=== PATIENT | female | born 1975 | race Two or more races ===

== ENCOUNTER 2017-06-23 05:35 | Day surgery (SDC) | payer OTHER ==
[~2017-06-23 05:35] MED LIST: OGESTREL TABLE1 EACH PO
== END 2017-06-23 15:45 | disposition home or self-care (01) ==
LOC: CIR.AMB 05:35
DX: N84.0 Polyp of corpus uteri (principal); D26.7 Other benign neoplasm of other parts of uterus

== ENCOUNTER 2021-08-06 05:33 | Day surgery (SDC) | payer OTHER | END 2021-08-06 14:15 | disposition home or self-care (01) | LOC: CIR.AMB 05:33 → EDBD 10:15 → CIR.AMB 10:15 | PROVIDERS: ATTEND Obstetrics & Gynecology | DX: N93.8 Other specified abnormal uterine and vaginal bleeding (principal); Z87.891 Personal history of nicotine dependence; Z20.822 Contact with and (suspected) exposure to COVID-19 ==

== ENCOUNTER 2024-03-19 14:18 | Emergency (ER) | payer OTHER ==
[~2024-03-19] VITALS: Ht 165.1 cm; Wt 59.0 kg
[2024-03-19 16:06] LABS: HEMATOCRIT 40.6 % (36.0-45.00); HEMOGLOBIN 13.9 g/dL (12.0-15.00); MEAN CELL VOLUME 91.5 fL (80.00-100.00); MEAN CORPUSCULAR HEMOGLOBIN 31.2 pg (27.00-32.0); MEAN CORPUSCULAR HGB CONC 34.1 g/dl (32.0-36.0); PLATELET COUNT 269 K/uL (150-450); RED BLOOD COUNT 4.44 M/uL (4.00-6.00); RED CELL DISTRIBUTION WIDTH 14.3 % (11.5-14.5)
[2024-03-19 16:27] LABS: INR 1.02; PARTIAL THROMBOPLASTIN TIME 26.9 SECONDS (22.0-34.0); PROTHROMBIN TIME 11.1 SECONDS (9.0-11.5)
[2024-03-19] MEDS ORDERED: TOPROL XL25 M1 PO (16:36)
[2024-03-19] MEDS ORDERED: TIROSINT25 MCG PO (16:36)
[2024-03-19] MEDS ORDERED: AMLODIPINE-OLM1 EAC2 PO (16:37)
[2024-03-19] MEDS ORDERED: MEGESTROL ACETA40 MG PO (21:05)
== END 2024-03-19 21:10 | disposition home or self-care (01) ==
LOC: ER 14:20
PROVIDERS: Nurse Practitioner Family
DX: N93.9 Abnormal uterine and vaginal bleeding, unspecified (principal)